=== PATIENT | male | born 1945 | race Caucasian/White ===

== ENCOUNTER 2016-06-10 21:55 | Inpatient (IN) | payer BC, OTHER ==
--- NOTE | ~2016-06-10 | HP ---
History And Physical [place] [id number] [facility]. [address] NAME: SOLE BARKSDALE : 45 STATUS : ADM IN LOCATED WITHIN [facility]#: [id number] AGE: 70 ADM/REG DATE : 06/10/16 MR#: [id number] REPORT SERV DATE: 06/11/16 DICTATED BY: BRANNON ALDRICH DATE: 06/11/16 REPORT STATUS : Draft TRANSCRIBED BY: MODMorales DATE: 06/11/16 DATE OF ADMISSION: 06/10/2016 CHIEF COMPLAINT: Palpitations. HISTORY OF PRESENT ILLNESS: Mr. Barksdale is a 70-year-old man I have known for a couple of years now who recently underwent atrial fibrillation ablation. He has done well in the interim except he has now had some palpitations that were sudden onset for the last several hours. At first he states that they felt very irregular. He then came to the emergency room and was found to be in a regular narrow complex tachycardia. Adenosine was given and it appears the underlying rhythm is atrial flutter or possibly atrial fibrillation. He has since converted to sinus rhythm on his own. He feels much better. Back to baseline. No chest pain or passing out. PAST MEDICAL HISTORY: 1. Atrial fibrillation, status post ablation. 2. History of PVCs, medically managed. 3. Hyperlipidemia. 4. GERD. 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 He is . Nonsmoker. FAMILY HISTORY: There is congestive heart failure in the family. No significant arrhythmia. HOME MEDICATIONS: 1. Tylenol as directed. 2. Augmentin as directed. 3. Eliquis 5 mg b.i.d. 4. Nexium 40 mg daily. 5. Bystolic 2.5 mg daily. ALLERGIES: HE IS ALLERGIC TO CARDURA, FLOMAX, PROPOFOL. REVIEW OF SYSTEMS: A 10 system review is asked and is negative except for noted above in history of present illness. PHYSICAL EXAMINATION: VITAL SIGNS: Temperature 98.0, heart rate 80, blood pressure 103/76. GENERAL: Mr. Barksdale is a well-developed man in no acute distress. He is alert and oriented to person and place. HEENT: Negative. He is not dehydrated. There is no JVD in his neck. LUNGS: Clear. HEART: Tones are regular. ABDOMEN: Negative. He has good bowel sounds. EXTREMITIES: Does not show edema. History And Physical [place] [id number] [facility] [place]. [address] NAME: SOLE BARKSDALE : 45 STATUS : ADM IN PAT#: [id number] AGE: 70 ADM/REG DATE : 06/10/16 MR#: [id number] REPORT SERV DATE: 06/11/16 DICTATED BY: BRANNON ALDRICH DATE: 06/11/16 REPORT STATUS : Draft TRANSCRIBED BY: LOAN DATE: 06/11/16 NEUROLOGIC: He moves all four extremities equally. No weakness. SKIN: Negative. No rash or bruising. LABORATORY DATA: White blood cell count 6, hematocrit 41, platelet count 199. INR 1.1. Sodium 138, potassium 3.6, BUN 10, creatinine 0.8. Cardiac enzymes are negative. Magnesium 2.3. Electrocardiogram in sinus rhythm. He has heart rate of 77 beats per minute with a barely normal axis. Low voltage. Poor R-wave progression. The electrocardiogram on admission appears to be a regular narrow complex tachycardia. Telemetry showed sinus rhythm now. Other strips show Adenosine injection of 12 mg followed by a fine flutter or possibly atrial fibrillation. IMPRESSION: Atrial fibrillation or atrial flutter. PLAN: Mr. Barksdale is on Eliquis and is therefore protected. We will continue this of course. He always knows to watch out for bleeding. He is now in sinus rhythm. So it is okay with me if he goes home today. He is in favor of this. We talked about options. We agree that hopefully just a short-term antiarrhythmic medication would be in order here after his recent ablation. I will give him flecainide. He will start on 50 mg twice daily for a week and then increase to 100 mg twice daily after that. He will come see me in about 6 weeks. He knows to call me if there are any other problems in the meantime. The patient and I discussed this plan and he agrees. KAMRAN/LOAN Brannon Aldrich M.D. / [id number] CC: Brannon Aldrich M.D.
[~2016-06-10 21:55] MED LIST: ACET500CAP PO; ACIDOPHILUS PO; ADVIL PO; AFRIN15 NAS; AMB5 PO; B COMPLEX PO; BYSTOLIC10 MG PO; CARDCD120 PO; CENTRUM PO; CENTRUM TAB1 TAB PO; D.O.S.100 MG PO; DSS PO; ELIQUIS 5 MG TAB5 MG PO; FLOMAX4 PO; INDE80LA PO; MAGOX4 PO; METHOC500B PO; MULTIVIT/MIN PO; NEXIUM40 PO; OXYCON10 PO; PERCOCET1 TA4 PO; SALMON OIL PO; VITAMIN B12 PO; VITAMIN C100 MG PO; VITAMIN C1000 MG PO; VITAMIN D31000 UNIT PO; VITC500 PO
[2016-06-10 22:07] LABS: BASOPHILS 0.5 %; BASOPHILS ABSOLUTE 0.03 10/3/uL (0.0-0.16); EOSINOPHILS 1.1 %; EOSINOPHILS ABSOLUTE 0.07 10/3/uL (0.0-0.53); HEMATOCRIT 41.1 % (40.0-51.0); HEMOGLOBIN 13.4 g/dL (13.6-17.8); IMMATURE GRANULOCYTES 0.2 %; IMMATURE GRANULOCYTES ABSOLUTE 0.01 10/3/uL (0.0-0.11); LYMPHOCYTES 20.7 %; LYMPHOCYTES ABSOLUTE 1.26 10/3/uL (0.67-4.30); MEAN CORPUS HGB CONC 32.6 g/dL (32.0-36.0); MEAN CORPUSCULAR HEMOGLOB 27.1 pg (26.0-34.0); MEAN CORPUSCULAR VOLUME 83.2 fL (80-100); MEAN PLATELET VOLUME 8.4 fL (9.2-13.0); MONOCYTES 17.6 %; MONOCYTES ABSOLUTE 1.07 10/3/uL (0.21-1.20); NEUTROPHILS 59.9 %; NEUTROPHILS ABSOLUTE 3.65 10/3/uL (2.02-8.40); PLATELET COUNT 199 10/3/uL (150-400); RBC DISTRIBUTION WIDTH 15.7 % (12.0-16.0); RED CELL COUNT 4.94 10/6/uL (4.7-6.1); WHITE BLOOD CELLS 6.1 10/3/uL (4.5-10.5)
[2016-06-10 22:08] LABS: MANUAL DIFF NO %
[2016-06-10 22:15] LABS: INTERNATIONAL NORMAL RATI 1.1 UNITS (-); PARTIAL THROMBO TIME 35.4 SEC (22.5-37.2); PROTIME (NOT ORD) 14.5 SEC (12.0-14.5)
[2016-06-10 22:24] LABS: BUN (BLOOD UREA NITROGEN) 10 MG/DL (6-23); CALCIUM, SERUM 8.3 MG/DL (8.5-10.4); CHEST PAIN PROFILE TAT 0 Hrs 21 Mins; CHLORIDE, SERUM 104 MMOL/L (96-112); CO2 (CARBON DIOXIDE) 22 MMOL/L (24-34); CREATININE 0.86 MG/DL (0.70-1.30); GFR AFRICAN AMERICAN 102 ML/MIN (>=60); GFR NON AFRICAN AMERICAN 88 ML/MIN (>=60); GLUCOSE, SERUM 146 MG/DL (60-99); POTASSIUM, SERUM 3.6 MMOL/L (3.5-5.3); SODIUM, SERUM 138 MMOL/L (135-148); TROPONIN I <0.02 NG/ML (<0.05)
[2016-06-11] MEDS ORDERED: ELIQUIS 5 MG TAB5 MG PO (00:08)
[2016-06-11] MEDS ORDERED: NEXIUM40 PO (00:09)
[2016-06-11] MEDS ORDERED: DSS PO (00:09)
[2016-06-11] MEDS ORDERED: MAGNESIUM 500MG OTC PO (00:10)
[2016-06-11] MEDS ORDERED: MULTIVIT/MIN PO (00:10)
[2016-06-11] MEDS ORDERED: BYSTOLIC2.5 MG PO (00:10)
[2016-06-11] MEDS ORDERED: ACET500CAP PO (00:11)
[2016-06-11] MEDS ORDERED: AUG875 PO (00:11)
[2016-06-11] MEDS ORDERED: ANTIBIOTIC IM (00:13)
[2016-06-11] MEDS ORDERED: VITAMIN B PO (00:14)
[2016-06-11] MEDS ORDERED: CYANO1000T PO (00:14)
[2016-06-11] MEDS ORDERED: AFRIN15 NAS (00:14)
[2016-06-11] MEDS ORDERED: SALMON OIL 1000 MG PO (00:15)
[2016-06-11] MEDS ORDERED: FLECAINIDE100 MG PO (08:30)
== END 2016-06-11 09:15 | disposition home or self-care (01) | DRG 310 ==
LOC: ER 21:55 → 6NO 23:35
PROVIDERS: Emergency Medicine
DX: I48.92 Unspecified atrial flutter (principal); E78.5 Hyperlipidemia, unspecified; I48.91 Unspecified atrial fibrillation; I49.3 Ventricular premature depolarization; K21.9 Gastro-esophageal reflux disease without esophagitis; Z79.02 Long term (current) use of antithrombotics/antiplatelets; Z88.8 Allergy status to other drugs, medicaments and biological substances
CPT/HCPCS: 71010; 80048; 83735; 84484; 85025; 85610; 85730; 93005; 96365; 96375; 96376; 99285; A9270-GY; G0378; J0153